=== PATIENT | male | born 1995 | race Caucasian/White ===

== ENCOUNTER 2018-03-28 18:00 | Emergency (ER) | payer OTHER ==
[~2018-03-28] VITALS: Ht 170.2 cm; Wt 72.7 kg
[2018-03-28 18:01] VITALS: BP 140/87
[2018-03-28] MEDS ORDERED: ALLE12TA31 PO (18:12)
--- NOTE | 2018-03-28 18:35 | REP ---
Clinical: Trauma . Technique: Internal rotation, external rotation, and Y view left shoulder . Findings: No acute fracture or dislocation. The acromioclavicular and glenohumeral joints are intact. No periarticular calcifications or degenerative changes are appreciated. Sub acromial space is normal. Surrounding soft tissues are unremarkable. Impression: Normal left shoulder shoulder radiographs. Electronically Signed by Mike Curran MD 03/28/2018 06:27 P
== END 2018-03-28 19:17 | disposition home or self-care (01) ==
LOC: EDBD 18:00 → M ED 18:00
DX: M24.412 Recurrent dislocation, left shoulder (principal); W19.XXXA Unspecified fall, initial encounter; Y92.099 Unspecified place in other non-institutional residence as the place of occurrence of the external cause; Y93.89 Activity, other specified; Y99.9 Unspecified external cause status